=== PATIENT | male | born 1940 | race Caucasian/White ===

== ENCOUNTER → 2019-04-17 | Outpatient (CLI) | payer MEDICARE ==
[~2019-04-17] VITALS: Ht 177.8 cm; Wt 126.1 kg
[~2019-04-17] MED LIST: REGADENOSON 0.4 MG/5 ML PF SYG IVP SCH
== END | disposition home or self-care (01) ==
LOC: SHCH 07:59
PROVIDERS: ATTEND Internal Medicine Cardiovascular Disease
DX: R94.31 Abnormal electrocardiogram [ECG] [EKG] (principal)
CPT/HCPCS: 78452; 93017; 96374; A9500 ×2; J2785

== ENCOUNTER 2019-04-28 07:55 | Observation (INO) | payer MEDICARE ==
[2019-04-26 10:45] VITALS: BP 175/85
[2019-04-26 11:04] LABS: BASOPHILS % (AUTO) 0.5 % (0.0-5.0); EOSINOPHILS % (AUTO) 2.8 % (0.0-8.0); HEMATOCRIT 42.6 % (42-54); LYMPHOCYTES % (AUTO) 22.2 % (21.0-51.0); MEAN CORPUSCULAR HEMOGLOBIN 29.6 pg (27.0-33.0); MEAN CORPUSCULAR HGB CONC 33.1 g/dL (32.0-36.0); MEAN CORPUSCULAR VOLUME 89.3 fL (79-99); MONOCYTES % (AUTO) 8.8 % (3.0-13.0); NEUTROPHILS % (AUTO) 65.4 % (40.0-77.0); PLATELET COUNT (AUTO) 232 K/uL (130-400); RED BLOOD CELL COUNT(AUTO) 4.77 MIL/uL (4.50-6.20); WHITE BLOOD COUNT (AUTO) 6.5 K/uL (4.8-10.8)
[2019-04-26 11:12] LABS: CREATININE 1.4 mg/dL (0.5-1.5); POTASSIUM 4.4 mmol/L (3.5-5.1)
[2019-04-26 11:29] LABS: APPEARANCE,URINE Clear (CLEAR); BILIRUBIN,URINE Negative (NEGATIVE); COLOR,URINE Yellow (YELLOW); GLUCOSE, URINE (UA) Negative (NEGATIVE); KETONES,URINE Negative (NEGATIVE); LEUKOCYTE ESTERASE ,URINE Trace (NEGATIVE); NITRATE,URINE Negative (NEGATIVE); OCCULT BLOOD,URINE Negative (NEGATIVE); PROTEIN,URINE Negative (NEGATIVE); UROBILINOGEN,URINE 0.2 mg/dL (0.2-1.0)
[2019-04-26 11:35] LABS: INR 1.01 (0.85-1.15); PARTIAL THROMBOPLASTIN TIME 27.3 SEC (26.3-35.5); PROTHROMBIN TIME 10.6 SEC (9.6-11.6)
[2019-04-26 11:55] VITALS: BP 162/84
[2019-04-26 12:01] LABS: BACTERIA,URINE Rare /HPF (None Seen); SQUAMOUS EPITHELIAL CELL,UR Few /HPF (0-2)
--- NOTE | 2019-04-27 13:24 | NUR ---
labs called patient to inform him that due to elevated crea 1.4 patient to increase fluid po intake , no answer after multiple attempts. message left on his answering machine to call us back to inform him of md orders. also called his spouse no answer
[2019-04-28] VITALS (9 sets, daily range): BP systolic 112–156; BP diastolic 57–81
[~2019-04-28] VITALS: Ht 177.8 cm; Wt 126.6 kg
[~2019-04-28 07:55] MED LIST changes: +AMLO5TAB9 PO; +ASPI-555 PO; +BENEFIBER PO; +CALCIUM PO; +LOSA1TAB42 PO; +MULT1TAB70 PO; -REGADENOSON 0.4 MG/5 ML PF SYG IVP SCH; +SODIUM CHLORIDE 0.9% 500ML 500 ML IV SCH
--- NOTE | 2019-04-28 08:00 | NUR ---
PRE-PROCEDURE RECEIVED FROM HOME TO DAY 8 FOR SCHEDULED C AMBULATING. AWAKE IN NO ACUTE DISTRESS. DENIES PAIN/DIFFICULTY BREATHING. CONNECTED TO CONTINUOUS CARDIOPULMONARY MONITORING. SIDE RAILS UP X2, BED IN LOWEST POSITION, AND CALL LIGHT W/IN REACH. PT HAS UROSTOMY TO BEDSIDE DRAINAGE BAG, DRAINING CLEAR YELLOW URINE.
[2019-04-28 08:34] LABS: CREATININE 1.3 mg/dL (0.5-1.5); POTASSIUM 3.9 mmol/L (3.5-5.1)
--- NOTE | 2019-04-28 08:40 | NUR ---
LAB RESULTS SPOKE WITH HUBER BRANDT REGARDING REPEAT BMP W/ CREAT 1.3. REPORTS HE WILL INFORM DR. MAZARIEGOS.
[2019-04-28] MEDS ORDERED: SODIUM CHLORIDE 0.9% 1000ML 1,000 ML IV ONE (09:32)
[2019-04-28] MEDS ORDERED: BIVALIRUDIN 250 MG/VIAL IV ONE ×2 (11:10→12:57)
[2019-04-28] MEDS ORDERED: MIDAZOLAM HCL 1 MG/ML 2ML VIAL ONE (11:11)
[2019-04-28] MEDS ORDERED: IOHEXOL-350 50ML VIAL IV ONE (11:11)
[2019-04-28] MEDS ORDERED: LIDOCAINE HCL 2% 20ML ONE (11:11)
[2019-04-28] MEDS ORDERED: IOHEXOL 350 MG/ML 100ML INFUS..BTL IV ONE (11:11)
[2019-04-28] MEDS ORDERED: NITROGLYCERIN 5 MG/ML 10 ML VIAL IV ONE (11:11)
--- NOTE | 2019-04-28 11:20 | NUR ---
PROCEDURE TRANSFERRED TO CUSTOMER COUNTER REPRESENTATIVE BY KARLY ELIZONDO RN. FOR [facility]. AWAKE IN NO ACUTE DISTRESS.
[2019-04-28] MEDS ORDERED: ASPIRIN 325MG EC TAB 325 MG TABLET.DR PO ONE (12:35)
[2019-04-28] MEDS ORDERED: CLOPIDOGREL BISULFATE 300 MG TAB ONE (12:35)
[2019-04-28] MEDS ORDERED: FENTANYL CITRATE PF 50 MCG/1 ML 2ML VIAL ONE (13:05)
[2019-04-28] MEDS ORDERED: DEXTROSE 50%-WATER 50 ML DISP.SYRIN IV PRN (13:30)
[2019-04-28] MEDS ORDERED: ONDANSETRON HCL 4 MG/2 ML VIAL IVP PRN (13:30)
[2019-04-28] MEDS: SODIUM CHLORIDE 0.9% 1000ML 1,000 ML IV SCH ×2 (14:37→19:33)
[2019-04-28] MEDS ORDERED: ZOLPIDEM TARTRATE 5 MG TAB PO PRN (14:45)
[2019-04-28] MEDS: MULTIVITAMIN TABLET PO SCH (15:11)
[2019-04-28] MEDS: CALCIUM 600 + VITAMIN D 400 TABLET PO SCH (15:11)
[2019-04-28] MEDS: INSULIN HUMULIN R 100 UNIT/ML 3ML SQ SCH ×2 (16:30→20:44)
[2019-04-28] MEDS ORDERED: ATORVASTATIN CALCIUM 20 MG TABLET PO SCH (21:00)
[2019-04-29 03:53] VITALS: BP 137/75
[2019-04-29 04:53] LABS: HEMATOCRIT 39.8 % (42-54); MEAN CORPUSCULAR HEMOGLOBIN 29.4 pg (27.0-33.0); MEAN CORPUSCULAR HGB CONC 33.4 g/dL (32.0-36.0); MEAN CORPUSCULAR VOLUME 87.9 fL (79-99); PLATELET COUNT (AUTO) 204 K/uL (130-400); RED BLOOD CELL COUNT(AUTO) 4.53 MIL/uL (4.50-6.20)
--- NOTE | 2019-04-29 05:11 | NUR ---
/0520-dressing to rt groin site clean, dry, and intact. site appears soft to palpation.
[2019-04-29 05:25] LABS: CREATININE 1.2 mg/dL (0.5-1.5); POTASSIUM 3.3 mmol/L (3.5-5.1)
[2019-04-29] MEDS: INSULIN HUMULIN R 100 UNIT/ML 3ML SQ SCH (05:37)
[2019-04-29 07:10] VITALS: BP 116/57
[2019-04-29] MEDS: MULTIVITAMIN TABLET PO SCH (07:49)
[2019-04-29] MEDS: CALCIUM 600 + VITAMIN D 400 TABLET PO SCH (07:49)
--- NOTE | 2019-04-29 08:00 | NUR ---
ASSESSMENT PT IS [id number] DENIES CP DENIES SOB DENIES NV NO COMPLAINTS, RIGHT GROIN WNL. SPOKE WITH DR Oli MAZARIEGOS OVER THE PHONE, UPDATES GIVEN. OK TO DC FROM HIS STANDPOINT, AWAITING HOSPITALIST. CALL LIGHT WITHIN REACH.
[2019-04-29] MEDS ORDERED: HYDROCHLOROTHIAZIDE 25 MG TABLET PO SCH (09:00)
[2019-04-29] MEDS ORDERED: CLOPIDOGREL BISULFATE 75 MG TAB PO SCH (09:00)
[2019-04-29] MEDS ORDERED: LOSARTAN 100 MG TABLET PO SCH (09:00)
[2019-04-29] MEDS ORDERED: ASPIRIN 81 MG EC TAB PO SCH (09:00)
[2019-04-29] MEDS ORDERED: AMLODIPINE BESYLATE 5 MG TAB PO SCH (09:00)
--- NOTE | 2019-04-29 10:45 | NUR ---
DC HOME PT AND SPOUSE VERBALIZE DC INSTRUCTIONS UNDERSTANDING, AGREE TO FOLLOW UP WITH DR Oli MAZARIEGOS 1-2 WEEKS, AGREE TO TAKE ALL MEDS ORDERED. ALL QUESTIONS ANSWERED. PAPERWORK SIGNED, PIV REMOVED, CATH TIP INTACT, TELE PACK REMOVED. DOWN VIA WC WITH NURSE AIDE TO VEHICLE.
== END 2019-04-29 10:45 | disposition home or self-care (01) ==
LOC: DAH 07:55 → DAHIP 07:56 → 2AH 14:37
PROVIDERS: ADMIT Internal Medicine; ATTEND Internal Medicine
DX: I50.32 Chronic diastolic (congestive) heart failure (principal); E11.9 Type 2 diabetes mellitus without complications; R00.1 Bradycardia, unspecified; N17.9 Acute kidney failure, unspecified; I25.10 Atherosclerotic heart disease of native coronary artery without angina pectoris; Z87.891 Personal history of nicotine dependence; Z96.651 Presence of right artificial knee joint; Z88.0 Allergy status to penicillin; Z88.1 Allergy status to other antibiotic agents; Z88.6 Allergy status to analgesic agent; Z88.8 Allergy status to other drugs, medicaments and biological substances; Z79.82 Long term (current) use of aspirin; Z79.899 Other long term (current) drug therapy
CPT/HCPCS: 36415 ×3; 71045; 80048 ×3; 80061; 81001; 82948 ×3; 85025; 85027; 85610; 85730; 93005; 93458; C1725; C1760; C1769; C1876; C1887; C1894; C9600; G0378 ×18; J0583 ×2; J1644 ×2; J2250; J3010; J3490 ×2; J7030 ×2; Q9965 ×2; Q9967 ×2; 99156; 99157